=== PATIENT | male | born 1950 | race Two or more races ===

== ENCOUNTER 2020-12-22 06:57 | Outpatient (CLI) | payer OTHER | END 2020-12-22 23:59 | disposition home or self-care (01) | LOC: LAB 06:57 | PROVIDERS: ATTEND Ophthalmology | DX: Z01.812 Encounter for preprocedural laboratory examination (principal); Z20.822 Contact with and (suspected) exposure to COVID-19 ==

== ENCOUNTER 2020-12-24 06:15 | Day surgery (SDC) | payer OTHER ==
[2020-12-24] MEDS ORDERED: hydrALAZINE HCL 20 MG/1 ML VIAL IM ONE (06:16)
[2020-12-24] MEDS ORDERED: KETOROLAC 0.5% OPHT DROP 3 ML BOTTLE ONE (06:40)
[2020-12-24] MEDS ORDERED: CIPROFLOXACIN 0.3% OPHT DROP 2.5 ML BOTTLE ONE (06:43)
[2020-12-24] MEDS ORDERED: TROPICAMIDE 1% OPHT DROP 3 ML BOTTLE ONE (06:43)
[2020-12-24] MEDS ORDERED: PHENYLEPHRINE 2.5% OPHT DROP 2 ML BOTTLE ONE (06:44)
[2020-12-24] MEDS ORDERED: CYCLOPENTOLATE 1% OPHT DROP 2 ML BOTTLE ONE (06:44)
[2020-12-24] MEDS ORDERED: BALANCED SALT IRRIG SOLN COMB1 500 ML, EPINEPHRINE-PF 1:1000 0.5 MG IO ONE (07:00)
[2020-12-24] MEDS ORDERED: FENTANYL CITRATE 100 MCG/2 ML AMPUL ONE (07:35)
[2020-12-24] MEDS ORDERED: NEO/POLYMYX B/DEXAME OPHT OINT 3.5 GM TUBE ONE (07:41)
[2020-12-24] MEDS ORDERED: TIMOLOL MALEATE 0.5% OPHT DROP 5 ML BOTTLE ONE (07:41)
[2020-12-24] MEDS ORDERED: MOXIFLOXACIN HCL 3 ML OPHT DROPS ONE (07:41)
[2020-12-24] MEDS ORDERED: LIDOCAINE-MPF 2% , 2 ML VIAL ONE (07:42)
[2020-12-24] MEDS ORDERED: BALANCED SALT IRRIG SOLN COMB2 15 ML IRRIG.SOLN ONE (07:42)
[2020-12-24] MEDS ORDERED: BALANCED SALT IRRIG SOLN COMB1 500 ML ONE (07:42)
[2020-12-24] MEDS ORDERED: BUPIVACAINE PF 0.5% 30 ML VIAL ONE (07:42)
[2020-12-24] MEDS ORDERED: ACETYLCHOLINE CHLORIDE 1% OPHT 1 EA KIT ONE (07:42)
[2020-12-24] MEDS ORDERED: HYALURONIDASE,OVINE 200 UNITS/ML VIAL ONE (07:43)
[2020-12-24] MEDS ORDERED: LIDOCAINE-MPF 2% 5 ML VIAL ONE (07:43)
[2020-12-24] MEDS ORDERED: HYALURONATE SODIUM 12.8 MG/0.8 ML DISP.SYRIN ONE (07:43)
== END 2020-12-24 10:30 | disposition home or self-care (01) ==
LOC: DS 06:15
PROVIDERS: ATTEND Ophthalmology
DX: E11.36 Type 2 diabetes mellitus with diabetic cataract (principal); H25.89 Other age-related cataract; I10 Essential (primary) hypertension; K21.9 Gastro-esophageal reflux disease without esophagitis; Z79.899 Other long term (current) drug therapy; Z72.89 Other problems related to lifestyle; Z98.890 Other specified postprocedural states
CPT/HCPCS: 66984; 71045; 82962; J0171; J3010; J3471; J3490 ×2; J7321; A4663; J0360; J7030; V2632